=== PATIENT | male | born 1965 | race Caucasian/White ===

== ENCOUNTER 2024-01-26 22:58 | Inpatient (IN) | payer BC, SELFPAY ==
[2024-01-26 18:59] VITALS: BP 128/92
--- NOTE | 2024-01-26 19:26 | ED.GENMED ---
History of Present Illness
General
Chief Complaint: Abdominal Pain
Source: patient
Exam Limitations: none
Time Seen by Provider: 01/26/24 19:16
History of Present Illness
History of Present Illness:
58-year-old male presents with lower abdominal discomfort over the past 4 to 5 days worsening since then. He feels bloated. His bowel movements have decreased. He is nauseous without vomiting. He denies a fever. No urinary symptoms. He has a
history of diverticulitis. He notes increaesed thirst. No chest pain or shortness of breath. No other complaints at this time.
Past History
Past History
ED Past Medical History: None
ED Past Surgical History: Orthopedic
Social History
Personal:
Living: with family
Employment: Retired
Phy Exam
Physical Exam
Physical Exam:
General: Well-appearing male no acute respiratory distress
ENT: Normocephalic atraumatic
Heart: Regular rate and rhythm no murmurs
Lungs: Clear no wheeze
Abdomen soft tender to bilateral lower abdomen mild guarding no rebound tenderness
Extremities: No cyanosis
Course
Orders/Labs/Results
Orders:
Orders
01/26/24 19:25
CT Abd/pel Without Iv Or Oral Urgent
Reason For Exam: lower abdominal pain
0.9% Sodium Chloride 500 ml [Nss] 500 ml IV BOLUS
01/26/24 19:33
Complete Blood Count/With Diff Urgent
Comprehensive Metabolic Panel Urgent
Lipase Urgent
01/26/24 20:12
Bladder Scan- Treatment ONCE
01/26/24 20:48
Urinalysis Reflex To Culture Urgent
Date Specimen was Collected: 01/26/24
Time Specimen was Collected: 20:42
Abnormal Lab Results
01/26/24
19:33
RBC 4.35 L 10^6/uL
(4.70-6.10)
MCH 32.2 H pg
(27.0-31.0)
Plt Count 124 L 10^3/uL
(130-400)
Abs Immat Gran (auto) 0.1 H 10^3/uL
(0-0.05)
Absolute Neuts (auto) 7.0 H 10^3/uL
(1.4-6.5)
Absolute Lymphs (auto) 1.1 L 10^3/uL
(1.2-3.4)
Absolute Monos (auto) 0.8 H 10^3/uL
(0.1-0.6)
Neutrophils % 77.4 H %
(42.2-75.2)
Lymphocytes % 12.4 L %
(20.5-51.1)
Carbon Dioxide 20 L mmol/L
(22-30)
BUN 59 H mg/dl
(9-20)
Creatinine 2.5 H mg/dL
(0.7-1.3)
ALT 79 H U/L
(0-50)
01/26/24 19:33
01/26/24 19:33
Vital Signs
Initial and Last Documented VS:
Initial Vital Signs
Temp Pulse Resp BP Pulse Ox
97.9 F 48 18 128/92 98
01/26/24 18:59 01/26/24 18:59 01/26/24 18:59 01/26/24 18:59 01/26/24 18:59
Last Documented Vital Signs
Temp Pulse Resp BP Pulse Ox
97.9 F 48 18 141/72 97
01/26/24 18:59 01/26/24 18:59 01/26/24 18:59 01/26/24 21:00 01/26/24 21:45
MDM/Problems Addressed
Differential Diagnosis Includes:
Lower abdominal pain. Consider constipation versus diverticulitis versus appendicitis. Patient slightly tender on exam. Will check labs. CT with IV contrast pending hydration ordered
*Critical Care Note
Total Time (30-74mins, 75-104mins- exclusive of procedures): Not Applicable
Update Note
Update Note:
Workup demonstrates acute kidney injury with a creatinine of 2.5 and a BUN of 59. Patient denies any dark or tarry stools. He does note excessive thirst recently. Most recent labs reviewed on his chart on his telephone suggest normal creatinine
couple months ago. He had blood work drawn 1 week ago at [facility] and was told by his family doctor that his kidney functions were normal. Bladder scan demonstrates 340 mL of bladder preurination and postvoid was 0. I do suspect obstructive
uropathy. CT shows diverticulosis without diverticulitis and there is minimal pericholecystic edema with minimal ascites and trace right pleural effusion. This is nonspecific possibly due to cholecystitis or hepatitis or reflecting reactive change
from acute renal insufficiency. Patient reexamined there is no tenderness to the right upper quadrant. Concern is acute kidney injury. Possibly prerenal. Fluids ordered. Will admit to hospital.
ED Attending Note
-
Portions of this chart may have been created with voice recognition software.� Occasional wrong word or��sound alike� substitutions may have occurred due to the inherent limitations of voice recognition software.
Discharge Plan
Departure
Patient Disposition: Admit
Date of Disposition: 01/26/24
Time of Disposition: 22:01
Presentation/result/management discussed w/ accepting MD/DO: Hospitalist
Discharge Problem:
FRAN (acute kidney injury)
Prescriptions:
No Action
loperamide 2 MG capsule
2 mg PO Q6HPRN PRN (Reason: diarrhea)
psyllium husk (aspartame) [Metamucil Fiber Singles] 1 PACKET powder in packet
1 packet PO DAILY
cholecalciferol (vitamin D3) [Vitamin D3] 1,000 UNIT capsule
2,000 unit PO DAILY
fish oil-dha-epa 1 EACH capsule
2 ea PO BID
magnesium oxide 500 MG capsule
500 mg PO DAILY
red yeast rice 600 MG tablet
600 mg PO BID
metronidazole 500 MG tablet
500 mg PO TID Qty: 21 0RF
levofloxacin 500 MG tablet
500 mg PO DAILY Qty: 7 0RF
omeprazole 20 mg capsule,delayed release(DR/EC)
20 mg PO DAILY 30 Days Qty: 30 0RF
Referrals:
Andreas Luque DO [Family Provider] -
Interventions
Interventions:
*Risk Screen - Suicide Last Done: 01/26/24 18:59
*General Assessment Last Done: 01/26/24 18:59
*Neglect/Abuse Screening Last Done: 01/26/24 18:59
ED- Fall Risk Assessment Last Done: 01/26/24 19:29
*ED COVID-19 Vaccine History Last Done: 01/26/24 19:29
DJ-Bsdczg-Ijhllccqxo Assessment Last Done: 01/26/24 19:29
Discharge Date and Time
Print Language: CA[place] ISLAND[place]
[2024-01-26 19:28] VITALS: BMI 33.8
[2024-01-26] MEDS: NSS 500 IV (19:34)
[2024-01-26 19:53] LABS: % Basophils 0.1 % (0-2); % Eosinophils 0.5 % (0-6); % Immature Granulocytes 0.5 % (0-0.5); % Lymphocytes 12.4 % (20.5-51.1); % Monocytes 9.1 % (1.7-9.3); % Neutrophils 77.4 % (42.2-75.2); Absolute Eosinophils 0.1 10^3/uL (0-0.7); Absolute Immature Granulocytes 0.1 10^3/uL (0-0.05); Absolute Lymphocytes 1.1 10^3/uL (1.2-3.4); Absolute Monocytes 0.8 10^3/uL (0.1-0.6); Hematocrit 40.3 % (39.0-52.0); Mean Corp Hgb Conc. 34.7 g/dL (33.0-37.0); Mean Corpuscular Hgb 32.2 pg (27.0-31.0); Mean Corpuscular Volume 92.6 fL (80.0-94.0); Mean Platelet Volume 10.2 fL (7.4-10.4); Nucleated Red Blood Cells % 0 % (-); Platelet Count 124 10^3/uL (130-400); Red Blood Cell Count 4.35 10^6/uL (4.70-6.10); Red Cell Dist. Width 11.9 % (11.5-14.5); White Blood Cell Count 9.1 10^3/uL (4.8-10.8)
[2024-01-26 20:07] LABS: ALT (SGPT) 79 U/L (0-50); AST (SGOT) 48 U/L (17-59); Albumin 4.1 g/dl (3.5-5.0); Alkaline Phosphatase 54 U/L (38-126); Blood Urea Nitrogen 59 mg/dl (9-20); Calcium 8.8 mg/dl (8.4-10.2); Carbon Dioxide 20 mmol/L (22-30); Chloride 105 mmol/L (98-107); Estimated Creatinine Clearance 39 ml/min; Glucose 92 mg/dl (70-99); Lipase 105 U/L (23-300); Potassium 4.3 mmol/L (3.5-5.1); Sodium 140 mmol/L (135-145); Total Bilirubin 0.6 mg/dl (0.2-1.3); Total Protein 6.4 g/dl (6.3-8.2); eGFR 29.05
[2024-01-26 20:11] VITALS: BP 148/74
[2024-01-26 20:57] LABS: Urine Albumin Trace (Neg - Trace); Urine Bilirubin Negative (Negative); Urine Character Clear (Clear); Urine Color Straw; Urine Glucose Negative (Negative); Urine Ketone Negative (Negative); Urine Leukocyte Negative (Negative); Urine Nitrite Negative (Negative); Urine Occult Blood Negative (Negative); Urine Urobilinogen Negative (Neg - 1+)
[2024-01-26 21:00] VITALS: BP 141/72
[2024-01-26 22:00] VITALS: BP 142/73
--- NOTE | 2024-01-26 22:49 | HPS.HSE ---
Family Physician
-
Family Physician: Andreas Luque
Chief Complaint
-
Abdominal Distention
History of Present Illness
Patient is a 58y M with PMH significant for IBS and obesity who presents to ED complaining of abdominal distention x several days. Patient reports long history of IBS symptoms, diverticular disease, etc. He reports that typical 'flares'
usually last only a day or so. Over the past week he has had crampy lower abdominal pain, intermittent small / loose stools, anorexia and abdominal bloating / distention. He has been trying to force fluids, but has not been eating much. He states
that he has not had a good, formed BM in the past 4 days. He has been urinating more frequently but denies dysuria, hematuria, etc.
Patient denies any known sick contacts.
He spent the [place] and notes that he drank more than usual on Sunday in particular. His symptoms seem to have progressed since that time.
Patient takes ibuprofen 800mg daily for various joint pains, etc. He states that he has been taking two tabs daily for the past few weeks due to increased pain in the L shoulder.
Medical History
Past Medical History
Past Medical History: Reports Other
Additional Past Medical History:
IBS
Diverticular Disease
Obesity
ADITI not on PAP therapy
Past Surgical History: Reports Other
Additional Past Surgical History:
Sports Hernia Repair
Right Hip Labrum Repair
Right Carpal Tunnel Surgery
Rectus Abdominis Repair
Bilateral TKA
Left Elbow Surgery
Social History
Tobacco: Non-smoker
Alcohol: Occasional (Weekend drinking typically. Had more than usual this past / through Sunday.)
Drug: None
Personal:
Family History
Family History: Not pertinent
Allergies / Home Medications
Allergies reflects when Allergies were last updated in [facility].
Home Medications with original date entered in [facility]
Allergy/Medication List:
Allergies
Allergy/AdvReac Type Severity Reaction Status Date / Time
No Known Allergies Allergy Verified 01/26/24 18:59
Home Medications
cholecalciferol (vitamin D3) 25 mcg (1,000 unit) capsule (Vitamin D3) 2,000 unit PO DAILY 02/06/21
fish oil-dha-epa 1,200 mg-144 mg-216 mg capsule 2 ea PO BID 02/06/21
loperamide 2 mg capsule 2 mg PO Q6HPRN PRN diarrhea 02/06/21
magnesium oxide 500 mg capsule 500 mg PO DAILY 02/06/21
psyllium husk (aspartame) 3.4 gram oral powder packet (Metamucil Fiber Singles) 1 packet PO DAILY 02/06/21
red yeast rice 600 mg tablet 600 mg PO BID 02/06/21
omeprazole 20 mg capsule,delayed release 20 mg PO DAILY 30 days #30 caps 10/25/22
Review of Systems
-
History Source: Patient
A 12 point ROS was completed and negative except as noted: Yes
Constitutional: Reports Fatigue and Chills; Denies Fever
EENT: Denies Sore Throat
Respiratory: Denies Cough or Trouble Breathing
Cardiac: Denies Chest Pain or Palpitations
Abdomen/GI: Reports Abdominal Pain, Nausea, Vomiting, Constipated and Anorexia; Denies Bloody Stools or Black Stools
: Reports Frequency; Denies Dysuria, Flank Pain, Incontinence, Difficulty Voiding, Urgency or Bleeding
Musculoskeletal: Reports Joint Pain (chronic); Denies Edema
Neurological: Denies Dizzy or Headache
Psych: Denies Depression or Anxiety
Physical Exam
Vital Signs
Vital Signs
Temp Pulse Resp BP Pulse Ox
97.9 F 48 18 142/73 97
01/26/24 18:59 01/26/24 18:59 01/26/24 18:59 01/26/24 22:00 01/26/24 22:30
Physical Exam
General: Other (58y M in no acute distress.)
HEENT: Moist mucous membranes and PERRLA
Respiratory: Clear; No Wheezes, Rales or Rhonchi
Cardiac: S1/S2 and Regular Rhythm; No Murmur
GI: Other (Abdomen is softly distended. Pos tenderness across lower abdomen. No rebound / guarding. No RUQ tenderness.)
Genito-urinary: No costovertebral tender
Musculoskeletal: No Clubbing, No Cyanosis and No Edema
Neuro: AO x 3
Laboratory Results
-
01/26/24 19:33
01/26/24 19:33
Laboratory Results
Total Bilirubin 0.6 mg/dl (0.2-1.3) 01/26/24 19:33
AST 48 U/L (17-59) 01/26/24 19:33
ALT 79 U/L (0-50) H 01/26/24 19:33
Alkaline Phosphatase 54 U/L (38-126) 01/26/24 19:33
Lipase 105 U/L (23-300) 01/26/24 19:33
Impression/Plan
-
A/P: Patient is a 58y M with PMH significant for IBS and obesity who presents to ED complaining of abdominal distention / bloating.
FRAN
- Admit for further evaluation and treatment.
- SCr = 2.5 compared to known baseline of 0.9.
- Suspect prerenal etiology due to decreased PO intake, recent increased alcohol intake, etc.
- Also likely a component of med effect on chronic / recently increased NSAID dosing.
- Avoid NSAIDs / nephrotoxic agents.
- IVF support overnight and follow for improvement in renal function.
- Bladder scan protocol and straight cath / place Simon if any evidence of retention.
- CT scan done in the ED today shows no evidence of urinary obstruction.
- Consider Nephrology evaluation if renal function elder snot improve significantly with volume replacement.
IBS
- Patient with recent bloating, constipation, abdominal cramping due to IBS.
- CT scan done in the ED without evidence of additional acute abnormality.
- RUQ edema reported, but no RUQ tenderness or other symptoms / findings c/w GB disease.
- IVF support as noted above.
- Diet as tolerated.
- Patient states he had been doing very well on carb-free diet and had significant carb load over the weekend (alcohol).
- Follow for clinical improvement.
- Consider GI evaluation if new / worsening symptoms.
ADITI
- Not curently on PAP therapy due to poor tolerance / compliance.
Obesity due to excess calories
- Patient reports intentional weight loss of 25 lbs over the past year with diet / exercise.
- Encouraged to continue current measures.
DVT Prophylaxis: Subcut Heparin
Code Status: Full
[2024-01-26 23:43] VITALS: BP 145/75; BMI 32.9
[2024-01-27] MEDS: LR 1000 IV ×3 (01:09→16:51)
[2024-01-27] MEDS: HEPARIN 5000 UNITS SC ×3 (01:10→16:52)
[2024-01-27] MEDS: TYLENOL 650 MG PO (01:32)
[2024-01-27 06:00] VITALS: BMI 32.9
[2024-01-27 08:00] VITALS: BP 136/89
[2024-01-27 08:03] LABS: Hematocrit 37.2 % (39.0-52.0); Hemoglobin 12.8 g/dL (13.0-18.0); Mean Corp Hgb Conc. 34.4 g/dL (33.0-37.0); Mean Corpuscular Hgb 31.9 pg (27.0-31.0); Mean Corpuscular Volume 92.8 fL (80.0-94.0); Mean Platelet Volume 10.6 fL (7.4-10.4); Platelet Count 114 10^3/uL (130-400); Red Blood Cell Count 4.01 10^6/uL (4.70-6.10); Red Cell Dist. Width 11.9 % (11.5-14.5); White Blood Cell Count 7.9 10^3/uL (4.8-10.8)
[2024-01-27 08:26] LABS: Blood Urea Nitrogen 49 mg/dl (9-20); Calcium 8.6 mg/dl (8.4-10.2); Carbon Dioxide 18 mmol/L (22-30); Chloride 108 mmol/L (98-107); Estimated Creatinine Clearance 42 ml/min; Glucose 87 mg/dl (70-99); Potassium 4.2 mmol/L (3.5-5.1); Sodium 142 mmol/L (135-145); eGFR 32.11
--- NOTE | 2024-01-27 08:45 | W.PN.HOSP.TC ---
Today's Communication/Plan
-
see bold
Assessment / Plan
Assessment / Plan
58y M with PMH significant for IBS and obesity who presents to ED complaining of abdominal distention / bloating.
Gen: NAD, AAOx3.
Eyes: EOMI, PERRLA, no scleral icterus.
Neck: supple.
CV: RRR, +S1/S2, no m/r/g.
Resp: CTAB, no rales, wheezes, or rhonchi.
Abd: +BS, soft, NT, ND
Skin: No rashes.
Neuro: CN 2-12 intact, non-focal.
Psych: Normal mood and affect.
CT A/P: Trace right pleural effusion. Probable gallbladder sludge. Cannot exclude some minimal pericholecystic and right retroperitoneal edema. Some of several differential diagnostic possibilities include cholecystitis or hepatitis. No biliary
tract dilatation. Likely enlarged prostate gland.
FRAN:
-baseline Cr 0.9
-FRAN likely prerenal due to decreased oral intake and increased alcohol intake as well as NSAIDs (pt admits to taking large doses)
-CT A/P above, no obstruction
-cont IVFs
-Bladder scan protocol and straight cath / place Simon if any evidence of retention.
-c/s renal
IBS
- Patient with recent bloating, constipation, abdominal cramping due to IBS.
- CT scan done in the ED without evidence of additional acute abnormality.
- RUQ edema reported, but no RUQ tenderness or other symptoms / findings c/w GB disease.
- IVF support as noted above.
- Diet as tolerated.
- Patient states he had been doing very well on carb-free diet and had significant carb load over the weekend (alcohol).
- Consider GI evaluation if new / worsening symptoms.
Other problems:
ADITI: Not currently on CPAP therapy due to poor tolerance/compliance
Obesity due to excess calories
FULL/Heparin
Anticipated Discharge: 24 - 48 hours
Subjective/Interval History
-
Date of Service: January 27, 2024
No new complaints.
Objective Data
-
Labs:
Laboratory Results
01/27/24
07:20
WBC 7.9
Hgb 12.8 L
Hct 37.2 L
Plt Count 114 L
Sodium 142
Potassium 4.2
Chloride 108 H
Carbon Dioxide 18 L
BUN 49 H
Creatinine 2.3 H
Glucose 87
Calcium 8.6
Vital Signs:
Vital Signs
Temp Pulse Resp BP Pulse Ox
98.0 F 42 18 145/75 100
01/26/24 23:43 01/26/24 23:43 01/26/24 23:43 01/26/24 23:43 01/27/24 01:15
I&O
01/26/24 01/27/24 01/28/24
06:59 06:59 06:59
Intake Total 1480 / 1480
Output Total 1300 / 1300
Balance 180 / 180
[2024-01-27] MEDS: NSS (PRESERVATIVE FREE) 10 ML IV (09:07)
[2024-01-27] MEDS: PROTONIX IV 40 MG IV (09:08)
--- NOTE | 2024-01-27 09:49 | W.CON.NEPH ---
Addendum entered and electronically signed by John Navas DO 01/27/24 10:20:
Obtain lab work from 01/18/2024 creatinine was 1.08 urinalysis was completely bland
Original Note:
Consultation
-
Date/Time Consultation Requested: 01/27/24 930 AM
Date/Time Consultation Performed: 01/27/2024 950 AM
Requesting Provider: Dr. Stanley
Performing Provider: Dr. Navas
Reason for Consultation: Acute kidney injury
Medical History
-
Chief Complaint: Acute kidney injury
History of Present Illness:
Patient is a 58y M with PMH significant for IBS and obesity who presents to ED complaining of abdominal distention x several days. Patient reports long history of IBS symptoms, diverticular disease, etc. He reports that typical 'flares'
usually last only a day or so. Over the past week he has had crampy lower abdominal pain, intermittent small / loose stools, anorexia and abdominal bloating / distention. He has been trying to force fluids, but has not been eating much. He states
that he has not had a good, formed BM in the past 4 days. He has been urinating more frequently but denies dysuria, hematuria, etc.
Patient denies any known sick contacts.
[place] that he drank more than usual on Sunday in particular. His symptoms seem to have progressed since that time.
Patient takes ibuprofen 800mg daily for various joint pains, etc. He states that he has been taking two tabs daily for the past few weeks due to increased pain in the L shoulder. On presentation to the hospital he was in acute renal failure with a
creatinine of 2.5.
Past Medical History
IBS
Diverticular Disease
Obesity
ADITI not on PAP therapy
Sports Hernia Repair
Right Hip Labrum Repair
Right Carpal Tunnel Surgery
Rectus Abdominis Repair
Bilateral TKA
Left Elbow Surgery
Social History
Tobacco: Non-Smoker
Alcohol: Occasional
Drug: None
Family History
No chronic kidney disease
Allergies / Home Medications
Allergy/AdvReac Type Severity Reaction Status Date / Time
No Known Allergies Allergy Verified 01/26/24 18:59
�Medication �Instructions �Recorded �Confirmed �Type
cholecalciferol (vitamin D3) 25 2,000 unit PO DAILY Supplement 02/06/21 01/27/24 History
mcg (1,000 unit) capsule (Vitamin
D3)
fish oil-dha-epa 1,200 mg-144 2 ea PO BID Supplement 02/06/21 01/27/24 History
mg-216 mg capsule
magnesium oxide 500 mg capsule 500 mg PO DAILY Supplement 02/06/21 01/27/24 History
red yeast rice 600 mg tablet 600 mg PO BID Supplement 02/06/21 01/27/24 History
omeprazole 20 mg capsule,delayed 20 mg PO DAILY PRN upset stomach 01/27/24 01/27/24 History
release
Review of Systems
-
History Source: Patient
All other systems: Negative unless noted
Constitutional: Fatigue
Abdomen/GI: Abdominal Pain (with distention) and Diarrhea
: Frequency
Musculoskeletal: Joint Pain
Physical Exam
Vital Signs
Vital Signs
Temp Pulse Resp BP Pulse Ox
98.3 F 92 16 136/89 97
01/27/24 08:00 01/27/24 08:00 01/27/24 08:00 01/27/24 08:00 01/27/24 08:00
Lab Results
01/27/24 07:20
01/27/24 07:20
WBC 7.9 10^3/uL (4.8-10.8) 01/27/24 07:20
RBC 4.01 10^6/uL (4.70-6.10) L 01/27/24 07:20
Hgb 12.8 g/dL (13.0-18.0) L 01/27/24 07:20
Hct 37.2 % (39.0-52.0) L 01/27/24 07:20
Plt Count 114 10^3/uL (130-400) L 01/27/24 07:20
Sodium 142 mmol/L (135-145) 01/27/24 07:20
Potassium 4.2 mmol/L (3.5-5.1) 01/27/24 07:20
Chloride 108 mmol/L (98-107) H 01/27/24 07:20
Carbon Dioxide 18 mmol/L (22-30) L 01/27/24 07:20
BUN 49 mg/dl (9-20) H 01/27/24 07:20
Creatinine 2.3 mg/dL (0.7-1.3) H 01/27/24 07:20
eGFR 32.11 01/27/24 07:20
Glucose 87 mg/dl (70-99) 01/27/24 07:20
Calcium 8.6 mg/dl (8.4-10.2) 01/27/24 07:20
Albumin 4.1 g/dl (3.5-5.0) 01/26/24 19:33
Physical Exam
General: AOx3, Nontoxic , NAD, obese
HEENT: PERRL, EOMI, Anicteric, Conjunctivae Clear, Ear/Nose Intact, Hearing Normal, Oropharynx Clear/Moist, Dentition Intact, Facial Symmetry, Neck Supple, Neck: Trachea Midline, No JVD and No Thyromegaly, no Bruits
Respiratory: Clear to auscultation bilaterally with normal lung exersion
Cardiac: S1/S2 and Regular Rate/Rhythm
Breast: Deferred by me
Abdomen: Soft, Nontender, Nondistended, Normal Bowel Sounds and No Hepatosplenomegaly
Rectal: Deferred by Provider
Genito-urinary: No Costovertebral Tenderness
Extremities: No Clubbing, No Cyanosis and No Edema
Skin: No Rash or open lesions
Neuro: Nonfocal/Grossly Intact, CN II-XII (Intact) and Strength (Musculoskeletal exam 5 out of 5 both upper and lower extremities)
Hematologic/Lymphatic: No Cervical Lymphadenopathy, No Submandibular Lymphadenopathy and No Supraclavicular Lymphadenopathy
Psych: Mood/afflect pleasant, Insight/judgement good and Appropriate
Vascular: plus 2 pedal and radial pulses
Data Reviewed
-
CT Scan: Report Reviewed by me (No evidence of obstructive uropathy)
Labs: Labs Reviewed by me (BMP CBC, UA)
Old Records: Reviewed (Previous creatinine from 10/25/2022 0 point)
Assessment/Plan
-
Impression:
Acute kidney injury
Metabolic acidosis (gapped)
Abdominal distention/IBS
Obstructive sleep apnea
Obesity
Plan:
FRAN:
Suspect related to NSAID and prerenal stimulus from diarrhea losses
Hold further ibuprofen and all NSAIDs
Concur with IV fluid resuscitation, currently on LR at 150cc/hr
Obtain fractional excretion of sodium, urine eosinophils
Quantitate trace albuminuria with urine protein to creatinine
Hemodynamically stable
Obtain kidney and bladder ultrasound
Patient stated he just had lab work from Dr. Luque on January 17 and was told it was normal
[2024-01-27 12:00] VITALS: BP 133/71; BP 134/73; BP 135/70; PULSE 39; PULSE 40; PULSE 45
[2024-01-27 14:34] LABS: Body Fluid for Eosinophils No Eosinophils seen
--- NOTE | 2024-01-27 15:16 | CM ---
IA completed with pt at bedside.
Pt is a 58yr old male admitted with FRAN.
Pt is indep, driving, and working at baseline.
Goal is to return to home at dc; no needs identified
PCP; Andreas Luque
Pharm; Tonja Andrea
[2024-01-27 16:30] VITALS: BP 130/74
[2024-01-27 20:00] VITALS: BP 128/68; BP 129/68; BP 135/75; PULSE 45; PULSE 50
[2024-01-27 21:10] LABS: Protein/creatinine Ratio 0.9; Urine Protein 26 mg/dl; Urine Sodium 26 mmol/L (30-90)
[2024-01-27 23:25] VITALS: BP 141/78
[2024-01-28] MEDS: LR 1000 IV (00:37)
[2024-01-28] MEDS: HEPARIN 5000 UNITS SC ×3 (00:38→18:03)
[2024-01-28 05:44] VITALS: BMI 32.9
[2024-01-28 06:40] LABS: Blood Urea Nitrogen 47 mg/dl (9-20); Calcium 8.6 mg/dl (8.4-10.2); Carbon Dioxide 23 mmol/L (22-30); Chloride 108 mmol/L (98-107); Estimated Creatinine Clearance 44 ml/min; Glucose 100 mg/dl (70-99); Potassium 4.3 mmol/L (3.5-5.1); Sodium 143 mmol/L (135-145); eGFR 33.87
[2024-01-28 07:48] VITALS: BP 150/81
[2024-01-28 07:49] VITALS: BP 140/88; BP 150/81; BP 156/90; PULSE 45; PULSE 48; PULSE 55
[2024-01-28] MEDS: LR IV (08:41)
[2024-01-28] MEDS: NSS (PRESERVATIVE FREE) 10 ML IV (08:46)
[2024-01-28] MEDS: PROTONIX IV 40 MG IV (08:46)
--- NOTE | 2024-01-28 12:16 | W.PN.NEPH.PH ---
Today's Communication / Plan
-
wean off IVF
labs in am
Assessment/Plan
-
Impression:
Acute kidney injury
Metabolic acidosis (gapped)
Abdominal distention/IBS
Obstructive sleep apnea
Obesity
Plan:
FRAN:
Suspect related to NSAID and prerenal stimulus from diarrhea losses
bland UA, Fe high, U PCR 0.9gm/gm of cr -tubular-check paraprotein w/u, neg U eosinophils, no hydro on US
cr slowly improving, polyuric with net +ve fluid balance
agree to lower IVF rate and likely wean off as po intake seem at 4lit
Hemodynamically stable
avoid nephrotoxins, NSAIDs, red yeast rice-check CK
he has upcoming vacation for hunting-likely not ready unless cr sig improves
labs in am
-
-
Date of Service: January 28, 2024
CC / HPI / ROS
-
Chief Complaint:
FRAN,
History of Present Illness:
cr slightly down to 2.2
non oliguric with out wilson
met acidosis is better bicarb 23
BP stable
Review of Systems:
no cp or sob
no n/v
no dysuria
Labs
-
Labs:
WBC 7.9 10^3/uL (4.8-10.8) 01/27/24 07:20
RBC 4.01 10^6/uL (4.70-6.10) L 01/27/24 07:20
Hgb 12.8 g/dL (13.0-18.0) L 01/27/24 07:20
Hct 37.2 % (39.0-52.0) L 01/27/24 07:20
Plt Count 114 10^3/uL (130-400) L 01/27/24 07:20
Sodium 143 mmol/L (135-145) 01/28/24 05:38
Potassium 4.3 mmol/L (3.5-5.1) 01/28/24 05:38
Chloride 108 mmol/L (98-107) H 01/28/24 05:38
Carbon Dioxide 23 mmol/L (22-30) 01/28/24 05:38
BUN 47 mg/dl (9-20) H 01/28/24 05:38
Creatinine 2.2 mg/dL (0.7-1.3) H 01/28/24 05:38
eGFR 33.87 01/28/24 05:38
Glucose 100 mg/dl (70-99) H 01/28/24 05:38
Calcium 8.6 mg/dl (8.4-10.2) 01/28/24 05:38
Albumin 4.1 g/dl (3.5-5.0) 01/26/24 19:33
Physical Exam
-
Vital Signs:
Vital Signs
Temp Pulse Resp BP Pulse Ox
97.7 F 45 16 150/81 95
01/28/24 07:48 01/28/24 07:48 01/28/24 07:48 01/28/24 07:48 01/28/24 07:48
Cardiovascular:: Regular rate and rhythm
Respiratory:: Bilateral: CTA
Lung Excursion:: Normal
Abdomen:: Nontender and Soft
Extremity Edema:: None: Bilateral:
Wilson Catheter: No
--- NOTE | 2024-01-28 12:45 | W.PN.HOSP.TC ---
Today's Communication/Plan
-
monitor renal function
lr ok for now
Assessment / Plan
Assessment / Plan
58y M with PMH significant for IBS and obesity who presents to ED complaining of abdominal distention / bloating.
Gen: NAD, AAOx3.
Eyes: EOMI, PERRLA, no scleral icterus.
Neck: supple.
CV: RRR, +S1/S2, no m/r/g.
Resp: CTAB, no rales, wheezes, or rhonchi.
Abd: +BS, soft, NT, ND
Skin: No rashes.
Neuro: CN 2-12 intact, non-focal.
Psych: Normal mood and affect.
CT A/P: Trace right pleural effusion. Probable gallbladder sludge. Cannot exclude some minimal pericholecystic and right retroperitoneal edema. Some of several differential diagnostic possibilities include cholecystitis or hepatitis. No biliary
tract dilatation. Likely enlarged prostate gland.
FRAN:
-baseline Cr 0.9
-FRAN likely combined NSAID use with diarrhea and volume depletion
- Avoid Nephrotoxic agents
-IVF
-Renal US negative
-No eosinophils
-hopefully plateaud
-LR 75cc/hr
prerenal due to decreased oral intake and increased alcohol intake as well as NSAIDs (pt admits to taking large doses)
-CT A/P above, no obstruction
-cont IVFs
-Bladder scan protocol and straight cath / place Simon if any evidence of retention.
-c/s renal
IBS
- Patient with recent bloating, constipation, abdominal cramping due to IBS. - now improving
- CT scan done in the ED without evidence of additional acute abnormality.
- RUQ edema reported, but no RUQ tenderness or other symptoms / findings c/w GB disease. NO significant physicial findings on my exam
- IVF support as noted above.
- Diet as tolerated.
- Patient states he had been doing very well on carb-free diet and had significant carb load over the weekend (alcohol).
- GI eval outpatient
Other problems:
ADITI: Not currently on CPAP therapy due to poor tolerance/compliance
Obesity due to excess calories
FULL/Heparin
Anticipated Discharge: 24 - 48 hours
Subjective/Interval History
-
Date of Service: January 28, 2024
no acute events, diarrhea improved
Objective Data
-
Labs:
Laboratory Results
01/28/24
05:38
Sodium 143
Potassium 4.3
Chloride 108 H
Carbon Dioxide 23
BUN 47 H
Creatinine 2.2 H
Glucose 100 H
Calcium 8.6
Vital Signs:
Vital Signs
Temp Pulse Resp BP Pulse Ox
97.7 F 45 16 150/81 95
01/28/24 07:48 01/28/24 07:48 01/28/24 07:48 01/28/24 07:48 01/28/24 07:48
I&O
01/27/24 01/28/24 01/29/24
06:59 06:59 06:59
Intake Total 1480 / 1480 7140 / 7140 240 / 240
Output Total 1300 / 1300 4400 / 4400 675 / 675
Balance 180 / 180 2740 / 2740 -435 / -435
Review of Systems
-
History Source: Patient
All other systems: Not reviewed unless documented
Data Reviewed
-
CT Scan: Image personally visualized and interpreted and Report Reviewed by me
Ultrasound: Report Reviewed by me
Labs: Labs Reviewed by me
[2024-01-28 13:10] LABS: Creatine Phosphokinase 45 U/L (55-170)
[2024-01-28 15:35] VITALS: BP 128/69
--- NOTE | 2024-01-28 17:59 | PTCARENOTE ---
Confirmed with MD Starks (nephro) that urine MICHELLE interpret sample is a ONE time urine sample, NOT a 24 hour collection
[2024-01-28] MEDS: COLACE 100 MG PO (22:28)
[2024-01-28 23:35] VITALS: BP 142/82; BP 146/76; BP 154/81; PULSE 44; PULSE 48; PULSE 50
[2024-01-29] MEDS: HEPARIN 5000 UNITS SC ×3 (00:40→16:00)
[2024-01-29] MEDS: TYLENOL 650 MG PO (01:19)
--- NOTE | 2024-01-29 04:42 | PTCARENOTE ---
Pt stated he feels constipated. Last BM 01/25. OIL PUMPER ordered Colace. See MAR.
[2024-01-29 06:00] VITALS: BMI 32.3
[2024-01-29 06:49] LABS: Blood Urea Nitrogen 41 mg/dl (9-20); Calcium 8.7 mg/dl (8.4-10.2); Carbon Dioxide 25 mmol/L (22-30); Chloride 108 mmol/L (98-107); Estimated Creatinine Clearance 46 ml/min; Glucose 97 mg/dl (70-99); Potassium 4.4 mmol/L (3.5-5.1); Sodium 143 mmol/L (135-145); eGFR 35.81
[2024-01-29 07:45] VITALS: BP 129/80
[2024-01-29] MEDS: COLACE 100 MG PO (08:21)
[2024-01-29] MEDS: PROTONIX IV 40 MG IV (08:23)
[2024-01-29] MEDS: NSS (PRESERVATIVE FREE) 10 ML IV (08:24)
[2024-01-29] MEDS: MIRALAX 17 GRAMS PO (12:04)
[2024-01-29] MEDS: LR 1000 IV (12:05)
--- NOTE | 2024-01-29 13:18 | W.PN.NEPH.PH ---
Today's Communication / Plan
-
check u osmo, u na for polyuria and polydipsia
Assessment/Plan
-
Impression:
Acute kidney injury
Metabolic acidosis (gapped)
Abdominal distention/IBS
Obstructive sleep apnea
Obesity
Plan:
FRAN:
Suspect related to NSAID and prerenal stimulus from diarrhea losses
bland UA, Fe high, U PCR 0.9gm/gm of cr -tubular-check paraprotein w/u, neg U eosinophils, no hydro on US
cr slowly improving, polyuric with polydipsia-check U osmo, S sodium 143
IV bolus per primary
Hemodynamically stable
avoid nephrotoxins, NSAIDs, red yeast rice, low CK
labs in am
-
-
Date of Service: January 29, 2024
CC / HPI / ROS
-
Chief Complaint:
FRAN,
History of Present Illness:
cr slightly down to 2.1
non oliguric with out wilson
met acidosis is better bicarb 25
BP stable
Review of Systems:
no cp or sob
no dysuria
has [place] this am with mild nausea better post breakfast
Labs
-
Labs:
WBC 7.9 10^3/uL (4.8-10.8) 01/27/24 07:20
RBC 4.01 10^6/uL (4.70-6.10) L 01/27/24 07:20
Hgb 12.8 g/dL (13.0-18.0) L 01/27/24 07:20
Hct 37.2 % (39.0-52.0) L 01/27/24 07:20
Plt Count 114 10^3/uL (130-400) L 01/27/24 07:20
Sodium 143 mmol/L (135-145) 01/29/24 05:36
Potassium 4.4 mmol/L (3.5-5.1) 01/29/24 05:36
Chloride 108 mmol/L (98-107) H 01/29/24 05:36
Carbon Dioxide 25 mmol/L (22-30) 01/29/24 05:36
BUN 41 mg/dl (9-20) H 01/29/24 05:36
Creatinine 2.1 mg/dL (0.7-1.3) H 01/29/24 05:36
eGFR 35.81 01/29/24 05:36
Glucose 97 mg/dl (70-99) 01/29/24 05:36
Calcium 8.7 mg/dl (8.4-10.2) 01/29/24 05:36
Albumin 4.1 g/dl (3.5-5.0) 01/26/24 19:33
Physical Exam
-
Vital Signs:
Vital Signs
Temp Pulse Resp BP Pulse Ox
98.1 F 45 17 129/80 95
01/29/24 07:45 01/29/24 07:45 01/29/24 07:45 01/29/24 07:45 01/29/24 07:45
Cardiovascular:: Regular rate and rhythm
Respiratory:: Bilateral: CTA
Lung Excursion:: Normal
Abdomen:: Nontender and Soft
Extremity Edema:: None: Bilateral:
Wilson Catheter: No
--- NOTE | 2024-01-29 13:30 | W.PN.HOSP.TC ---
Today's Communication/Plan
-
LR bolus
start tamsulosin: enlarged prostate with urinary frequency at night prior to event - suspect BPH
monitor renal function, monitor for post atn diuresis
Assessment / Plan
Assessment / Plan
58y M with PMH significant for IBS and obesity who presents to ED complaining of abdominal distention / bloating.
Gen: NAD, AAOx3.
Eyes: EOMI, PERRLA, no scleral icterus.
Neck: supple.
CV: RRR, +S1/S2, no m/r/g.
Resp: CTAB, no rales, wheezes, or rhonchi.
Abd: +BS, soft, NT, ND
Skin: No rashes.
Neuro: CN 2-12 intact, non-focal.
Psych: Normal mood and affect.
CT A/P: Trace right pleural effusion. Probable gallbladder sludge. Cannot exclude some minimal pericholecystic and right retroperitoneal edema. Some of several differential diagnostic possibilities include cholecystitis or hepatitis. No biliary
tract dilatation. Likely enlarged prostate gland.
FRAN
-most likely atn
-baseline Cr 0.9
-FRAN likely combined NSAID use with diarrhea and volume depletion
- Avoid Nephrotoxic agents
-IVF
-Renal US negative
-No eosinophils
-hopefully plateaud
--CT A/P above, no obstruction
-c/s renal
IBS
- Patient with recent bloating, constipation, abdominal cramping due to IBS. - now improving
- CT scan done in the ED without evidence of additional acute abnormality.
- RUQ edema reported, but no RUQ tenderness or other symptoms / findings c/w GB disease. NO significant physicial findings on my exam
- IVF support as noted above.
- Diet as tolerated.
- Patient states he had been doing very well on carb-free diet and had significant carb load over the weekend (alcohol).
- GI eval outpatient
#Enlarged prostate
-has had issues with frequent urination, including at night
-start tamsulosin
-f/u urology
Other problems:
ADITI: Not currently on CPAP therapy due to poor tolerance/compliance
Obesity due to excess calories
FULL/Heparin
Anticipated Discharge: 24 - 48 hours
Subjective/Interval History
-
Date of Service: January 29, 2024
Headache, constipated
Objective Data
-
Labs:
Laboratory Results
01/29/24
05:36
Sodium 143
Potassium 4.4
Chloride 108 H
Carbon Dioxide 25
BUN 41 H
Creatinine 2.1 H
Glucose 97
Calcium 8.7
Vital Signs:
Vital Signs
Temp Pulse Resp BP Pulse Ox
98.1 F 45 17 129/80 95
01/29/24 07:45 01/29/24 07:45 01/29/24 07:45 01/29/24 07:45 01/29/24 07:45
I&O
01/28/24 01/29/24 01/30/24
06:59 06:59 06:59
Intake Total 7140 / 7140 2340 / 2340
Output Total 4400 / 4400 5250 / 5250
Balance 2740 / 2740 -2910 / -2910
Review of Systems
-
History Source: Patient
All other systems: Not reviewed unless documented
Data Reviewed
-
CT Scan: Image personally visualized and interpreted and Report Reviewed by me
Ultrasound: Report Reviewed by me
Labs: Labs Reviewed by me
--- NOTE | 2024-01-29 14:03 | CM ---
CM reviewed chart- ADC 1-2 days
[place] throughout room noted
No dc needs anticipated at this time
Discharge Disposition- home, no needs anticipated
[2024-01-29 14:57] LABS: Osmolality Urine 232 mOsm/kg (300-900)
[2024-01-29 15:04] LABS: Urine Sodium 59 mmol/L (30-90)
[2024-01-29 15:30] VITALS: BP 151/79
[2024-01-29] MEDS: FLOMAX 0.4 MG PO (15:56)
[2024-01-29 23:35] VITALS: BP 125/71; BP 129/74; BP 130/72; PULSE 44; PULSE 45; PULSE 49
[2024-01-30] MEDS: HEPARIN SC ×3 (00:04→08:37)
[2024-01-30 06:00] VITALS: BMI 31.9
[2024-01-30 07:06] LABS: Hematocrit 37.5 % (39.0-52.0); Mean Corp Hgb Conc. 34.7 g/dL (33.0-37.0); Mean Corpuscular Hgb 31.8 pg (27.0-31.0); Mean Corpuscular Volume 91.7 fL (80.0-94.0); Mean Platelet Volume 9.9 fL (7.4-10.4); Platelet Count 135 10^3/uL (130-400); Red Blood Cell Count 4.09 10^6/uL (4.70-6.10); Red Cell Dist. Width 11.6 % (11.5-14.5); White Blood Cell Count 6.5 10^3/uL (4.8-10.8)
[2024-01-30 07:40] VITALS: BP 157/83
[2024-01-30] MEDS: PROTONIX 40 MG PO (08:32)
[2024-01-30] MEDS: FLOMAX 0.4 MG PO (08:32)
[2024-01-30 08:33] LABS: Blood Urea Nitrogen 33 mg/dl (9-20); Calcium 8.9 mg/dl (8.4-10.2); Carbon Dioxide 27 mmol/L (22-30); Chloride 107 mmol/L (98-107); Estimated Creatinine Clearance 50 ml/min; Glucose 95 mg/dl (70-99); Potassium 4.2 mmol/L (3.5-5.1); Sodium 144 mmol/L (135-145); eGFR 40.38
--- NOTE | 2024-01-30 11:59 | CM ---
Addendum entered by Chris Fernandes 01/30/24 14:52:
Discharge order noted. Both t and his spouse are aware and pt's spouse stated she will transport pt home.
D/C plan: home no needs. Spouse to transport.
Original Note:
CM following re: discharge planning.
Reviewed pt's chart, met with pt and pt's spouse at bedside. Nephrology following.
Pt reports he lives with spouse and is independent in all areas [employer], no after care VN needs anticipated at discharge.
D/C plan: home with anticipated no after care VN needs. Spouse to transport at discharge.
CM will follow with discharge plan updates as hospitalization progresses
--- NOTE | 2024-01-30 13:00 | W.PN.NEPH.PH ---
Today's Communication / Plan
-
dc planning
Assessment/Plan
-
Impression:
Acute kidney injury
Metabolic acidosis (gapped)
Abdominal distention/IBS
Obstructive sleep apnea
Obesity
Plan:
follow BMP next week
no FR required
no NSAIDs
can be followed as OP from renal standpoint
-
-
Date of Service: January 30, 2024
CC / HPI / ROS
-
Chief Complaint:
FRAN,
History of Present Illness:
cr slightly down to 1.9
non oliguric without wilson
met acidosis is resolved
BP stable
Review of Systems:
no cp or sob
no dysuria
Labs
-
Labs:
WBC 6.5 10^3/uL (4.8-10.8) 01/30/24 06:53
RBC 4.09 10^6/uL (4.70-6.10) L 01/30/24 06:53
Hgb 13.0 g/dL (13.0-18.0) 01/30/24 06:53
Hct 37.5 % (39.0-52.0) L 01/30/24 06:53
Plt Count 135 10^3/uL (130-400) 01/30/24 06:53
Sodium 144 mmol/L (135-145) 01/30/24 06:53
Potassium 4.2 mmol/L (3.5-5.1) 01/30/24 06:53
Chloride 107 mmol/L (98-107) 01/30/24 06:53
Carbon Dioxide 27 mmol/L (22-30) 01/30/24 06:53
BUN 33 mg/dl (9-20) H 01/30/24 06:53
Creatinine 1.9 mg/dL (0.7-1.3) H 01/30/24 06:53
eGFR 40.38 01/30/24 06:53
Glucose 95 mg/dl (70-99) 01/30/24 06:53
Calcium 8.9 mg/dl (8.4-10.2) 01/30/24 06:53
Albumin 4.1 g/dl (3.5-5.0) 01/26/24 19:33
Physical Exam
-
Vital Signs:
Vital Signs
Temp Pulse Resp BP Pulse Ox
97.7 F 40 15 157/83 94
01/30/24 07:40 01/30/24 07:40 01/30/24 07:40 01/30/24 07:40 01/30/24 07:40
Cardiovascular:: Regular rate and rhythm
Respiratory:: Bilateral: CTA
Lung Excursion:: Normal
Abdomen:: Nontender and Soft
Bowel Sounds:: Normal
Extremity Edema:: None: Bilateral:
--- NOTE | 2024-01-30 14:33 | W.PN.HOSP.TC ---
Addendum entered and electronically signed by Jonathan Mata MD 01/30/24 16:47:
[id number]
Original Note:
Today's Communication/Plan
-
-f/u bmp in appx 1 week
-hydration
-no nsaids
-flomax
-f/u pcp, urology outpatient
Assessment / Plan
Assessment / Plan
58y M with PMH significant for IBS and obesity who presents to ED complaining of abdominal distention / bloating.
Gen: NAD, AAOx3.
Eyes: EOMI, PERRLA, no scleral icterus.
Neck: supple.
CV: RRR, +S1/S2, no m/r/g.
Resp: CTAB, no rales, wheezes, or rhonchi.
Abd: +BS, soft, NT, ND
Skin: No rashes.
Neuro: CN 2-12 intact, non-focal.
Psych: Normal mood and affect.
CT A/P: Trace right pleural effusion. Probable gallbladder sludge. Cannot exclude some minimal pericholecystic and right retroperitoneal edema. Some of several differential diagnostic possibilities include cholecystitis or hepatitis. No biliary
tract dilatation. Likely enlarged prostate gland.
FRAN
-most likely atn
-baseline Cr 0.9
-FRAN likely combined NSAID use with diarrhea and volume depletion
- Avoid Nephrotoxic agents
-Renal US negative
-No eosinophils
--CT A/P above, no obstruction
-Scr trending down
-f/u bmp in appx 1 week
-hydration
-no nsaids
IBS
- Patient with recent bloating, constipation, abdominal cramping due to IBS. - now improving
- CT scan done in the ED without evidence of additional acute abnormality.
- RUQ edema reported, but no RUQ tenderness or other symptoms / findings c/w GB disease. NO significant physicial findings on my exam
- IVF support as noted above.
- Diet as tolerated.
- Patient states he had been doing very well on carb-free diet and had significant carb load over the weekend (alcohol).
- GI eval outpatient
#Enlarged prostate
-has had issues with frequent urination, including at night
-start tamsulosin
-f/u urology
Other problems:
ADITI: Not currently on CPAP therapy due to poor tolerance/compliance
Obesity due to excess calories
FULL/Heparin
More than 30 minutes spent in discharge including
Final examination of the patient
Summarizing hospital stay
Instructions for continuing care to all relevant caregivers
Preparation of discharge records, prescriptions, and referral forms
Total time spent (35 in minutes):
Anticipated Discharge: Today
Subjective/Interval History
-
Date of Service: January 30, 2024
No acute events overnight.
Objective Data
-
Labs:
Laboratory Results
01/30/24
06:53
WBC 6.5
Hgb 13.0
Hct 37.5 L
Plt Count 135
Sodium 144
Potassium 4.2
Chloride 107
Carbon Dioxide 27
BUN 33 H
Creatinine 1.9 H
Glucose 95
Calcium 8.9
Vital Signs:
Vital Signs
Temp Pulse Resp BP Pulse Ox
97.7 F 40 15 157/83 94
01/30/24 07:40 01/30/24 07:40 01/30/24 07:40 01/30/24 07:40 01/30/24 07:40
I&O
01/29/24 01/30/24 01/31/24
06:59 06:59 06:59
Intake Total 2340 / 2340 4840 / 4840
Output Total 5250 / 5250 4650 / 4650
Balance -2910 / -2910 190 / 190
Review of Systems
-
History Source: Patient
All other systems: Not reviewed unless documented
Data Reviewed
-
CT Scan: Image personally visualized and interpreted and Report Reviewed by me
Ultrasound: Report Reviewed by me
Labs: Labs Reviewed by me
--- NOTE | 2024-01-30 14:36 | W.DS.TRANS ---
DC Summary - Folder Tier
-
Discharge Instructions:
Discharge Diagnosis/Procedures FRAN
Additional Diets adequate hydration
Activity As tolerated
Blood Work bmp in 3-5 days with pcp
Instructions:
Stand-Alone Forms:
Changes to Home Medications: Yes
Discharge Medications:
DC Medications w/original date entered in [facility]
cholecalciferol (vitamin D3) 25 mcg (1,000 unit) capsule (Vitamin D3) 2,000 unit PO DAILY Supplement 02/06/21
fish oil-dha-epa 1,200 mg-144 mg-216 mg capsule 2 ea PO BID Supplement 02/06/21
magnesium oxide 500 mg capsule 500 mg PO DAILY Supplement 02/06/21
red yeast rice 600 mg tablet 600 mg PO BID Supplement 02/06/21
omeprazole 20 mg capsule,delayed release 20 mg PO DAILY PRN upset stomach 01/27/24
tamsulosin 0.4 mg capsule 0.4 mg PO DAILY #30 caps 01/30/24
Home Medication Changes
tamsulosin 0.4 mg capsule 0.4 mg PO DAILY #30 caps 01/30/24
Pending Results: No
[2024-01-30 14:58] VITALS: BP 138/79
[2024-01-31 21:12] LABS: 24 Hour Urine Total Volume Random mL; Urine Collection Length Random hr; Urine Free Kappa Light Chains 3.41 mg/L (0.00-32.90); Urine Free Lambda Light Chains <0.74 mg/L (0.00-3.79)
== END 2024-01-30 15:15 | disposition home or self-care (01) | DRG 683 ==
LOC: 3 WEST ACU 22:58
PROVIDERS: Internal Medicine; Physician Assistant; ADMITTING PHYSICIAN Hospitalist; ATTENDING PHYSICIAN Internal Medicine; CONSULT PHYSICIAN Specialist; EMERGENCY PHYSICIAN Emergency Medicine; FAMILY PHYSICIAN Family Medicine
DX: N17.0 Acute kidney failure with tubular necrosis (principal); E87.20 Acidosis, unspecified; G47.33 Obstructive sleep apnea (adult) (pediatric); E66.09 Other obesity due to excess calories; Z96.653 Presence of artificial knee joint, bilateral; Z68.31 Body mass index [BMI] 31.0-31.9, adult; N40.1 Benign prostatic hyperplasia with lower urinary tract symptoms; R35.0 Frequency of micturition; R51.9 Headache, unspecified; T39.395A Adverse effect of other nonsteroidal anti-inflammatory drugs [NSAID], initial encounter; K58.2 Mixed irritable bowel syndrome; E11.9 Type 2 diabetes mellitus without complications; K57.30 Diverticulosis of large intestine without perforation or abscess without bleeding
CPT/HCPCS: 51798; 74176; 76770; 80048; 80053; 81003; 81099; 82550; 82570; 83521; 83690; 83935; 84155; 84156; 84165; 84300; 85025; 85027; 86335; 99285

== ENCOUNTER 2024-05-02 07:15 | Day surgery (SDC) | payer BC, SELFPAY ==
[2024-04-14 10:17] VITALS: BMI 33.1
[2024-04-14 10:53] LABS: % Basophils 0.5 % (0-2); % Eosinophils 1.9 % (0-6); % Immature Granulocytes 0.2 % (0-0.5); % Lymphocytes 38.8 % (20.5-51.1); % Monocytes 10.9 % (1.7-9.3); % Neutrophils 47.7 % (42.2-75.2); Absolute Eosinophils 0.1 10^3/uL (0-0.7); Absolute Lymphocytes 2.3 10^3/uL (1.2-3.4); Absolute Monocytes 0.6 10^3/uL (0.1-0.6); Absolute Neutrophils 2.8 10^3/uL (1.4-6.5); Hematocrit 43.2 % (39.0-52.0); Hemoglobin 14.7 g/dL (13.0-18.0); Mean Corpuscular Hgb 33.5 pg (27.0-31.0); Mean Corpuscular Volume 98.4 fL (80.0-94.0); Mean Platelet Volume 10.1 fL (7.4-10.4); Nucleated Red Blood Cells % 0 % (-); Platelet Count 191 10^3/uL (130-400); Red Blood Cell Count 4.39 10^6/uL (4.70-6.10); Red Cell Dist. Width 12.5 % (11.5-14.5); White Blood Cell Count 5.8 10^3/uL (4.8-10.8)
[2024-04-14 11:18] LABS: Blood Urea Nitrogen 23 mg/dl (9-20); Calcium 9.2 mg/dl (8.4-10.2); Carbon Dioxide 26 mmol/L (22-30); Chloride 102 mmol/L (98-107); Estimated Creatinine Clearance 97 ml/min; Glucose 101 mg/dl (70-99); Potassium 4.5 mmol/L (3.5-5.1); Sodium 141 mmol/L (135-145); eGFR > 60.00
[2024-05-02] VITALS (10 sets, daily range): BP systolic 116–140; BP diastolic 72–90; BMI 33.1
[2024-05-02] MEDS: TYLENOL 1000 MG PO (08:41)
[2024-05-02] MEDS: ZOFRAN 4 MG IV (12:01)
[2024-05-02] MEDS: ERYTHROMYCIN 0.5% OPHTHALMIC OINTMENT 1 APPLIC OPHTH (12:57)
== END 2024-05-02 14:20 | disposition home or self-care (01) ==
LOC: SDS 07:15
PROVIDERS: ATTENDING PHYSICIAN Specialist; FAMILY PHYSICIAN Family Medicine
DX: M75.122 Complete rotator cuff tear or rupture of left shoulder, not specified as traumatic (principal); S46.212A Strain of muscle, fascia and tendon of other parts of biceps, left arm, initial encounter; X58.XXXA Exposure to other specified factors, initial encounter; M19.012 Primary osteoarthritis, left shoulder; M25.512 Pain in left shoulder
CPT/HCPCS: 29827; 29828; 36415; 80048; 85025; 93005; C1713

== ENCOUNTER 2024-08-21 06:23 | Day surgery (SDC) | payer BC, SELFPAY | END 2024-08-21 09:15 | disposition home or self-care (01) | LOC: GI 06:23 | PROVIDERS: ATTENDING PHYSICIAN Internal Medicine | DX: Z12.11 Encounter for screening for malignant neoplasm of colon (principal); K63.5 Polyp of colon; D12.8 Benign neoplasm of rectum; K64.9 Unspecified hemorrhoids; K57.30 Diverticulosis of large intestine without perforation or abscess without bleeding; Z86.0101 Personal history of adenomatous and serrated colon polyps | CPT/HCPCS: 45385; 88305 ==